=== PATIENT | female | born 1965 | race Two or more races ===

== ENCOUNTER 2018-04-08 13:02 | Outpatient (CLI) | payer OTHER ==
[~2018-04-08 13:02] MED LIST: AMBIEN10 MG; HYZAAR 100-121 UDTAB; IBUPROFEN800 MG PO; ORPH100T PO
== END 2018-04-08 13:10 | disposition home or self-care (01) ==
LOC: LAB 13:02
DX: Z00.01 Encounter for general adult medical examination with abnormal findings (principal); Z51.81 Encounter for therapeutic drug level monitoring

== ENCOUNTER 2018-04-09 10:15 | Outpatient (CLI) | payer OTHER | END 2018-04-09 10:33 | disposition home or self-care (01) | LOC: RAD 10:15 → MRI 10:45 | DX: Z12.31 Encounter for screening mammogram for malignant neoplasm of breast (principal); Z00.01 Encounter for general adult medical examination with abnormal findings; M79.605 Pain in left leg; D32.0 Benign neoplasm of cerebral meninges; D32.9 Benign neoplasm of meninges, unspecified | CPT/HCPCS: 70552 ==

== ENCOUNTER 2018-10-19 15:28 | Emergency (ER) | payer OTHER ==
[~2018-10-19] VITALS: Ht 167.6 cm; Wt 91.6 kg
== END 2018-10-19 19:07 | disposition home or self-care (01) ==
LOC: ER 15:28
DX: K57.90 Diverticulosis of intestine, part unspecified, without perforation or abscess without bleeding (principal); M62.830 Muscle spasm of back; R10.814 Left lower quadrant abdominal tenderness

== ENCOUNTER 2018-11-05 15:28 | Outpatient (CLI) | payer OTHER | END 2018-11-05 15:38 | disposition home or self-care (01) | LOC: RAD 15:28 | DX: J45.998 Other asthma (principal); M54.5 Low back pain ==

== ENCOUNTER 2018-12-01 13:47 | Outpatient (CLI) | payer OTHER | END 2018-12-01 14:00 | disposition home or self-care (01) | LOC: NUCLEAR 13:47 | DX: M81.0 Age-related osteoporosis without current pathological fracture (principal); Z13.820 Encounter for screening for osteoporosis ==

== ENCOUNTER 2023-08-12 12:24 | Emergency (ER) | payer OTHER ==
[~2023-08-12] VITALS: Ht 167.6 cm; Wt 90.7 kg
[2023-08-12 14:08] LABS: HEMATOCRIT 41.6 % (36.0-45.00); HEMOGLOBIN 13.9 g/dL (12.0-15.00); MEAN CORPUSCULAR HEMOGLOBIN 28.4 pg (27.00-32.0); MEAN CORPUSCULAR HGB CONC 33.5 g/dl (32.0-36.0); PLATELET COUNT 334 K/uL (150-450); RED BLOOD COUNT 4.89 M/uL (4.00-6.00); RED CELL DISTRIBUTION WIDTH 14.9 % (11.5-14.5)
[2023-08-12 15:08] LABS: D DIMER 0.92 MG/L; PARTIAL THROMBOPLASTIN TIME 25.2 SECONDS (22.0-34.0)
[2023-08-12 15:09] LABS: INR 0.94; PROTHROMBIN TIME 9.9 SECONDS (9.0-11.5)
[2023-08-12] MEDS ORDERED: DICLOFENAC SODI75 MG PO (15:29)
[2023-08-12] MEDS ORDERED: MEDROLPACK PO (15:29)
== END 2023-08-12 15:32 | disposition home or self-care (01) ==
LOC: ER 12:25
PROVIDERS: General Practice
DX: M79.606 Pain in leg, unspecified (principal); M17.12 Unilateral primary osteoarthritis, left knee; I10 Essential (primary) hypertension; Z88.8 Allergy status to other drugs, medicaments and biological substances

== ENCOUNTER 2024-07-01 12:31 | Outpatient (CLI) | payer OTHER ==
[~2024-07-01 12:31] MED LIST changes: +DICLOFENAC SODI75 MG PO; +MEDROLPACK PO
== END 2024-07-01 12:33 | disposition home or self-care (01) ==
LOC: NUCLEAR 12:31
PROVIDERS: ATTEND Obstetrics & Gynecology
DX: M81.0 Age-related osteoporosis without current pathological fracture (principal)

== ENCOUNTER 2024-07-06 10:51 | Outpatient (CLI) | payer OTHER | END 2024-07-06 14:46 | disposition home or self-care (01) | LOC: MAMO-SONO 10:51 | PROVIDERS: ATTEND Obstetrics & Gynecology | DX: N60.11 Diffuse cystic mastopathy of right breast (principal); N60.12 Diffuse cystic mastopathy of left breast; Z12.31 Encounter for screening mammogram for malignant neoplasm of breast ==